=== PATIENT | male | born 1990 | race Caucasian/White ===

== ENCOUNTER 2019-03-14 18:10 | Emergency (ER) | payer SELFPAY ==
[~2019-03-14] VITALS: Ht 185 cm; Wt 133.6 kg
--- NOTE | 2019-03-14 18:21 | ED Back Pain ---
General Stated Complaint: LT SIDE BUTTOCKS PAIN Source of Information: Patient Exam Limitations: No Limitations History of Present Illness Date Seen by Provider: Mar 14, 2019 Time Seen by Provider: 18:12 Initial Comments The patient is a pleasant obese 28-year-old male presents for evaluation of low back pain/left buttock pain radiating down the left leg with some tingling and numbness. He states that he jumped out of his pickup truck bed onto the ground a few days ago and had immediate low back pain going to the left leg but it did seem to ease up. Today the pain became worse and it is bothering him. He denies any history of low back pain. He denies fevers or chills, difficulty urinating or defecating, back surgeries, abdominal pain, focal weakness, or any other complaints. He is alert and oriented 4, calm, and appears to be in no distress. He is able to ambulate into his emergency department room without any difficulty or assistance. Timing/Duration: 1-2 Days Severity: Moderate Pain/Injury Location: Back Radiation: Lower Legs (left) Allergies and Home Medications Allergies Coded Allergies: No Known Drug Allergies (Unverified , 03/14/19) Home Medications Ibuprofen 600 Mg Tablet, 600 MG PO Q6H PRN for PAIN-MILD Prescribed by: SKYLAR HINDS on 03/14/191842 Prednisone 20 Mg Tab, 40 MG PO DAILY Prescribed by: SKYLAR HINDS on 03/14/191842 Tramadol HCl 50 Mg Tablet, 50 MG PO Q6H PRN for BACK PAIN Prescribed by: SKYLAR HINDS on 03/14/191842 Patient Home Medication List Home Medication List Reviewed: Yes Review of Systems Constitutional: no symptoms reported EENTM: no symptoms reported Respiratory: no symptoms reported Cardiovascular: no symptoms reported Gastrointestinal: no symptoms reported Genitourinary: no symptoms reported Musculoskeletal: back pain Skin: no symptoms reported Psychiatric/Neurological: No Symptoms Reported All Other Systems Reviewed Negative Unless Noted: Yes Past Sdcckcy-Qoybzh-Qvnvqj Hx Past Med/Social Hx: Reviewed Nursing Past Med/Soc Hx Patient Social History Recent Foreign Travel: No Contact w/Someone Who Travel: No Physical Exam Vital Signs Vital Signs - First Documented 03/14/19 18:10 Temp 36.6 Pulse 104 Resp 18 B/P (MAP) 117/79 (92) Pulse Ox 97 O2 Delivery Room Air Capillary Refill : Height, Weight, BMI Height: '" Weight: lbs. oz. kg; BMI Method: General Appearance: No Apparent Distress, WD/WN HEENT: PERRL/EOMI, Pharynx Normal Neck: Full Range of Motion, Non Tender, Supple Cardiovascular: Regular Rate, Rhythm, No Edema, Normal Peripheral Pulses Respiratory: Chest Non Tender, Lungs Clear, Normal Breath Sounds Gastrointestinal: Normal Bowel Sounds, Non Tender, Soft Back: Other (mild midline lumbar tenderness from L3 to L5, left sciatic nerve region tenderness over left buttock) Extremity: Normal Capillary Refill, Normal Inspection, Normal Range of Motion Neurologic/Psychiatric: Alert, Oriented x3, No Motor/Sensory Deficits, Normal Mood/Affect, Other (patient able to and went into the room without difficulty or assistance) Skin: Normal Color, Warm/Dry Progress/Results/Core Measures Results/Orders My Orders Orders - SKYLAR HINDS DO Ct Lumbar Spine Wo (03/14/19 18:16) Vital Signs/I&O 03/14/19 18:10 Temp 36.6 Pulse 104 Resp 18 B/P (MAP) 117/79 (92) Pulse Ox 97 O2 Delivery Room Air Progress Progress Note : Progress Note @1922 - patient updated on CT result which suggests possible posterior disc herniation. The patient will need to follow-up with orthopedics and may require MRI. He expresses verbal understanding as to the plan and expresses agreement. He will go home with a prescription for prednisone, Ultram, and ibuprofen. Advised patient to return to the emergency Department immediately for new or worsening symptoms. He is stable for discharge at this time and is walking with a normal gait. Diagnostic Imaging Comments [facility] [place], [place] NAME: SKYLAR AVALOS [facility] REC#: [id number] PT STATUS: REG ER : 1990 PHYSICIAN: SKYLAR HINDS DO ADMIT DATE: 03/14/19/ER FS Draft Date of Exam:03/14/19 CT LUMBAR SPINE WO CLINICAL INDICATIONS: Patient fell out the back of a truck three days ago. Patient has lower back pain and left leg numbness. EXAM: CT scan of the lumbar spine performed without IV contrast. Sagittal and coronal reformatted images were created. Auto Exposure Controls were utilized during the CT exam to meet ALARA standards for radiation dose reduction. COMPARISON: None. FINDINGS: Lumbar spine is normal in alignment with no acute fracture or dislocation. There is mild broad compression deformities involving the lower L4 endplate, upper L5 endplate, lower L5 endplate, and upper S1 endplates with no cortical disruption seen. These may be related with chronic Schmorl's nodes. There is no pars defect seen. There is concern for posterior disk herniations at the L3-L4, L4-L5, and L5-S1 levels. There is at least mild central canal narrowing at the L3-L4 level. IMPRESSION: 1: There is no acute lumbar spine fracture or dislocation. 2: There is concern for posterior disk herniations at the L3-L4, L4-L5, and L5-S1 levels. There is at least mild central canal narrowing at the L3-L4 level. Nonemergent MRI of the lumbar spine would better evaluate. 3: Suspected chronic compression deformities and Schmorl's node involving the L4-L5 and L5-S1 levels. Dictated on workstation # [id number] Dict: 03/14/19 1835 Trans: 03/14/198 [id number] Interpreted by: ELIE RITTER MD Electronically signed by: Departure Impression Primary Impression: Left sciatic nerve pain Additional Impressions: Low back pain Lumbar disc herniation Disposition: 01 HOME, SELF-CARE Condition: Stable Departure-Patient Inst. Decision time for Depature: 19:24 Referrals: NO,LOCAL PHYSICIAN (PCP) Primary Care Physician Patient Instructions: Sciatica (DC), Sciatica Exercises, Low Back Pain (DC), Herniated Disc (DC) Add. Discharge Instructions: Take the prescribed medicines as directed. Return to the emergency department for new or worsening symptoms. Follow-up with your doctor in the next 2-3 days. Scripts Ibuprofen (Ibuprofen) 600 Mg Tablet 600 MG PO Q6H PRN for PAIN-MILD for 5 Days, #15 TAB Prov: SKYLAR HINDS DO 03/14/19 Tramadol HCl (Ultram) 50 Mg Tablet 50 MG PO Q6H PRN for BACK PAIN for 5 Days, #15 TAB Prov: SKYLAR HINDS DO 03/14/19 Prednisone (Prednisone) 20 Mg Tab 40 MG PO DAILY for 5 Days, #10 TAB 0 Refills Prov: SKYLAR HINDS DO 03/14/19 Work/School Note: Work Release Form Date Seen in the Emergency Department: Mar 14, 2019 Return to Work: Mar 16, 2019 Restrictions: Need Release from Doctor SKYLAR HINDS DO Mar 14, 2019 18:21
[2019-03-14] MEDS ORDERED: IBUP-1773 PO (18:43)
[2019-03-14] MEDS ORDERED: TRAM-42 PO (18:43)
[2019-03-14] MEDS ORDERED: PRD20T PO (18:43)
--- NOTE | 2019-03-14 18:49 | Diagnostic Imaging Report ---
CLINICAL INDICATIONS: Patient fell out the back of a truck three days ago. Patient has lower back pain and left leg numbness. EXAM: CT scan of the lumbar spine performed without IV contrast. Sagittal and coronal reformatted images were created. Auto Exposure Controls were utilized during the CT exam to meet ALARA standards for radiation dose reduction. COMPARISON: None. FINDINGS: Lumbar spine is normal in alignment with no acute fracture or dislocation. There is mild broad compression deformities involving the lower L4 endplate, upper L5 endplate, lower L5 endplate, and upper S1 endplates with no cortical disruption seen. These may be related with chronic Schmorl's nodes. There is no pars defect seen. There is concern for posterior disk herniations at the L3-L4, L4-L5, and L5-S1 levels. There is at least mild central canal narrowing at the L3-L4 level. IMPRESSION: 1: There is no acute lumbar spine fracture or dislocation. 2: There is concern for posterior disk herniations at the L3-L4, L4-L5, and L5-S1 levels. There is at least mild central canal narrowing at the L3-L4 level. Nonemergent MRI of the lumbar spine would better evaluate. 3: Suspected chronic compression deformities and Schmorl's node involving the L4-L5 and L5-S1 levels. Dictated by: Dictated on workstation # [id number]
[2019-03-14 19:26] VITALS: BP 117/79
== END 2019-03-14 19:28 | disposition home or self-care (01) ==
LOC: ER FS 18:12
DX: M54.42 Lumbago with sciatica, left side (principal); K45.8 Other specified abdominal hernia without obstruction or gangrene; W17.89XA Other fall from one level to another, initial encounter
CPT/HCPCS: 72131